=== PATIENT | female | born 1935 | race African-American/Black ===

== ENCOUNTER → 2018-01-28 | Day surgery (SDC) | payer MEDICARE, MEDICAID ==
[~2018-01-28] VITALS: Ht 160 cm; Wt 72.1 kg
[~2018-01-28] MED LIST: AMLO10TA80 PO; ASCO-339 PO; ASPI-1159 PO; CAPT100T2 PO; CHOL200010 PO; FERR325T6 PO; HYDROMORPHONE HCL/PF 2MG/ML CPJ IV PRN; LACTATED RINGERS 1,000 ML IV SCH; MAX PO; METO-396 PO; ONDANSETRON HCL 4MG/2ML VIAL IV PRN; SIMV20TA6 PO
[2018-01-28 06:16] LABS: BASOPHILS % 0.2 % (0.0-2.0); EOSINOPHILS % 1.1 % (0.0-5.0); HEMATOCRIT. 24.4 % (36.0-48.0); LYMPHOCYTES % 45.9 % (20.0-50.0); MEAN CORPUSCULAR HEMOGLOBIN 26.6 pg (28.0-32.0); MEAN CORPUSCULAR VOLUME 81.7 fL (81.0-99.0); MEAN PLATELET VOLUME 8.2 fl (7.4-10.4); MONOCYTES % 7.4 % (2.0-8.0); NEUTROPHILS % 45.4 % (40.0-76.0); PLATELET 119 x1000/uL (130-400); RED BLOOD CELL COUNT 2.99 mill/uL (4.2-5.4); RED CELL DISTRIBUTION WIDTH 21.8 % (11.6-14.6)
[2018-01-28 06:20] LABS: CHLORIDE 115 mEq/L (98-107)
[2018-01-28 06:26] LABS: INR 1.1; PARTIAL THROMBOPLASTIN TIME 31.6 sec (23.4-31.0); PROTHROMBIN TIME 11.4 sec (9.4-11.6)
[2018-01-28] MEDS: FENTANYL CITRATE/PF 50MCG/ML 2ML VIAL IV PRN ×2 (09:09→09:17)
[2018-01-28 09:17] VITALS: BP 133/73
== END | disposition home or self-care (01) ==
LOC: OR 05:19
PROVIDERS: ATTEND Obstetrics & Gynecology
DX: N72 Inflammatory disease of cervix uteri (principal); N95.0 Postmenopausal bleeding; I12.9 Hypertensive chronic kidney disease with stage 1 through stage 4 chronic kidney disease, or unspecified chronic kidney disease; N18.9 Chronic kidney disease, unspecified; Z88.0 Allergy status to penicillin; Z88.8 Allergy status to other drugs, medicaments and biological substances; Z79.82 Long term (current) use of aspirin; Z79.899 Other long term (current) drug therapy
CPT/HCPCS: 36415; 58120; 71045; 80053; 85025; 85610; 85730; 86850; 86900; 86901; 88305; 93005; J0330; J2250; J2405; J3010; J3490; J7042; J7120; J2704